=== PATIENT | female | born 1945 | race American Indian/Alaskan Native ===

== ENCOUNTER 2017-03-03 12:12 | Day surgery (SDC) | payer MEDICARE, MEDICAID ==
[2016-08-15 19:40] VITALS: BMI 27.6
--- NOTE | 2017-03-03 12:58 | CP.SDSHP ---
Same Day Surgery H & P - History Proposed Procedure: colonoscopy - Previous Medical/Surgical History Cardiac: Hypertension Endocrine/Metabolic: Diabetes - Allergies Allergies: Allergies No Known Allergies Allergy (Verified 08/15/16 19:47) - Date & Time Date: 03/03/17 Time: 12:58 Short Stay Discharge - Short Stay Discharge Admitting Diagnosis/Reason for Visit: ENCOUNTER FOR SCREENING FOR MALIGNANT NEOPLASM OF Disposition: HOME/ ROUTINE
[2017-03-03] MEDS ORDERED: Propofol 10 mg/ml Inj (20 ML) ONE (14:12)
[2017-03-03 14:45] VITALS: TEMP 96.6
[2017-03-03 15:23] VITALS: O2SAT 100
[2017-03-03 15:56] VITALS: BP 144/60; PULSE 63; RESP 13
== END 2017-03-03 16:51 | disposition home or self-care (01) ==
LOC: C.ENDO 12:12
PROVIDERS: ATTEND Colon & Rectal Surgery
DX: D12.4 Benign neoplasm of descending colon (principal); K57.30 Diverticulosis of large intestine without perforation or abscess without bleeding; K64.8 Other hemorrhoids
CPT/HCPCS: 45388; 82948; 88305; J2704

== ENCOUNTER 2017-09-21 10:02 | Observation (INO) | payer MEDICARE, MEDICAID ==
[2017-09-21 10:03] VITALS: BMI 27.6
[2017-09-21] MEDS: Sodium Chloride 0.9% 1,000 ML IV SCH ×3 (10:30→22:46)
--- NOTE | 2017-09-21 11:10 | C.PDOC ---
History Of Present Illness 72 y/o female,brought by ambulance, from adult day care to the ER for vomiting and syncope. HPI is limited because the patient has dementia.The patient was actively vomiting upon arrival per nurse. Patient denies any nausea, diarrhea, pain, and trauma per EMS/ Adult Daycare. Time Seen by Provider: 09/21/17 11:04 Chief Complaint (Nursing): Syncope History/Exam Limitations: clinical condition (dementia) Onset/Duration Of Symptoms: Hrs Current Symptoms Are (Timing): Still Present Severity: Moderate Additional History Per: EMS, Skilled Nursing Past Medical History Reviewed: Historical Data, Nursing Documentation, Vital Signs Vital Signs: Last Vital Signs Temp 97.3 F L 09/21/17 11:50 Pulse 76 09/21/17 12:31 Resp 12 09/21/17 12:31 BP 99/38 L 09/21/17 12:31 Pulse Ox 100 09/21/17 12:31 - Medical History PMH: Arthritis, CHF, Diabetes, HTN, Hypercholesterolemia Denies: Chronic Kidney Disease Surgical History: Endoscopy Family History: States: No Known Family Hx - Social History Hx Alcohol Use: No Hx Substance Use: No Review Of Systems Except As Marked, All Systems Reviewed And Found Negative. Constitutional: Negative for: Fever, Chills Gastrointestinal: Positive for: Vomiting. Negative for: Nausea, Diarrhea Physical Exam - Physical Exam Appears: Non-toxic Skin: Normal Color, Warm Head: Atraumatic, Normacephalic Cardiovascular: Rhythm Regular Respiratory: Normal Breath Sounds, No Accessory Muscle Use Gastrointestinal/Abdominal: Normal Exam, Soft, No Tenderness Extremity: Normal ROM Neurological/Psych: Other (AOx1) ED Course And Treatment - Laboratory Results Result Diagrams: 09/21/17 11:05 09/21/17 11:05 Interpretation Of Abnormal: LACTATE WNL ECG Rhythm: Sinus Rhythm Interpretation Of ECG: New T wave inversions compared to ECG from 2016. Rate From EC O2 Sat by Pulse Oximetry: 100 (RA) Pulse Ox Interpretation: Normal Progress - Re-Evaluation Re-evaluation Note: 09/21/17 12:27 APPEARS COMFORTABLE NAD. SBP 90S. CT PENDING 09/21/17 13:58 EATING APPEARS COMFORTABLE. D/W DR CORTNEY SOUSA TOBACCO CURER AWARE OF ER FINDINGS WILL ADMIT - Data Reviewed Data Reviewed: Lab, Diagnostic imaging, EKG, Old records - Critical Care Citical Care: Excluding Proc Time Critical Care Time: 90 minutes Medical Decision Making Medical Decision Making: Plan: --CT Head W/O Contrast --ECG --Labs Disposition Counseled Patient/Family Regarding: Studies Performed, Diagnosis - Disposition Disposition: HOSPITALIZED Disposition Time: 13:58 Condition: STABLE Forms: [facility] (Djiboutian) - POA Present On Arrival: None - Clinical Impression Clinical Impression: Syncope, Dementia, Hypotension - Scribe Statement The provider has reviewed the documentation as recorded by the Sita Berger Provider Attestation: All medical record entries made by the Brennanibe were at my direction and personally dictated by me. I have reviewed the chart and agree that the record accurately reflects my personal performance of the history, physical exam, medical decision making, and the department course for this patient. I have also personally directed, reviewed, and agree with the discharge instructions and disposition. Decision To Admit - Pt Status Changed To: Hospital Disposition Of: Observation - . Bed Request Type: Telemetry Admitting Physician: Young Mendoza Patient Diagnosis: Syncope, Dementia, Hypotension
[2017-09-21 11:20] LABS: BASO % 0.3 % (0.0-2.0); EOS # 0.1 K/uL (0.0-0.7); EOS % 1.5 % (0.0-4.0); HEMOGLOBIN 11.3 g/dL (11.0-16.0); LYMPH # 1.4 K/uL (1.0-4.3); LYMPH % 21.7 % (20.0-40.0); MEAN CELL VOLUME 88.5 fL (81.0-99.0); MEAN CORPUSCULAR HEMOGLOBIN 29.2 pg (27.0-31.0); MEAN PLATELET VOLUME 8.4 fL (7.2-11.7); MONO # 0.5 K/uL (0.0-0.8); NEUT # 4.4 K/uL (1.8-7.0); NEUT % 68.5 % (50.0-75.0); RBC 3.85 Mil/uL (3.80-5.20); WHITE BLOOD COUNT 6.4 K/uL (4.8-10.8)
[2017-09-21 11:34] LABS: INR 1.1; PROTHROMBIN TIME 12.2 SECONDS (9.7-12.2)
[2017-09-21 11:54] LABS: ALB/GLOB RATIO 1.1 (1.0-2.1); ALBUMIN 3.6 g/dL (3.5-5.0); CALCIUM 8.7 mg/dl (8.6-10.4); MAGNESIUM 1.6 mg/dL (1.6-2.3)
[2017-09-21 12:02] LABS: SQUAMOUS EPITHIAL < 1 /hpf (0-5); URINE BILIRUBIN NEGATIVE (NEGATIVE); URINE BLOOD NEGATIVE (NEGATIVE); URINE CLARITY Clear (Clear); URINE COLOR Yellow (YELLOW); URINE GLUCOSE (UA) NORMAL (Normal); URINE LEUKOCYTE ESTERASE TRACE Leu/uL (Negative); URINE NITRATE NEGATIVE (NEGATIVE); URINE PROTEIN NEGATIVE (NEGATIVE); URINE UROBILINOGEN NORMAL mg/dL (0.2-1.0)
[2017-09-21 12:04] LABS: TROPONIN I 0.038 ng/mL (0.00-0.120)
--- NOTE | 2017-09-21 12:21 | CT ---
PROCEDURE: CT HEAD WITHOUT CONTRAST. HISTORY: SYNCOPE COMPARISON: None available. TECHNIQUE: Axial computed tomography images were obtained through the head/brain without intravenous contrast. Radiation dose: Total exam DLP = 797.36 mGy-cm. This CT exam was performed using one or more of the following dose reduction techniques: Automated exposure control, adjustment of the mA and/or kV according to patient size, and/or use of iterative reconstruction technique. FINDINGS: HEMORRHAGE: No intracranial hemorrhage. BRAIN: Diffuse atrophy with prominence of the ventricles and sulci noted. No mass effect or edema. Dense intracranial atherosclerosis. Bilateral basal ganglia calcifications. Moderate scattered periventricular and subcortical white matter hypodensities, which are nonspecific, but often seen with chronic microvascular ischemic disease. VENTRICLES: No hydrocephalus. CALVARIUM: Unremarkable. PARANASAL SINUSES: Unremarkable as visualized. No significant inflammatory changes. MASTOID AIR CELLS: Unremarkable as visualized. No inflammatory changes. OTHER FINDINGS: None. IMPRESSION: Moderate nonspecific white matter changes.
[2017-09-21] MEDS ORDERED: Sodium Chloride 0.9% 1,000 ML ONE (15:46)
--- NOTE | 2017-09-21 16:23 | RAD ---
HISTORY: Sepsis Patient COMPARISON: No prior. FINDINGS: LUNGS: Shallow lung volumes. No dense consolidation diffuse interstitial lung marking mild prominence-chronicity unknown PLEURA: No significant pleural effusion identified, ; small left pleural effusion excluded no pneumothorax apparent. CARDIOVASCULAR: Minimal cardiomegaly. 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 OTHER FINDINGS: Right superior mediastinal mild increased soft tissue density/ prominence without tracheal deviation -chronicity unknown - prominent brachiocephalic vessels -1 consideration IMPRESSION: No consolidation. Nonspecific borderline prominent interstitial and bronchovascular markings -chronicity unknown Small minimal left small pleural effusion possible. 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
[2017-09-21 22:13] VITALS: RESP 20
--- NOTE | 2017-09-21 23:31 | CP.PCM.HP ---
History of Present Illness - History of Present Illness History of Present Illness: CC: syncope HPI: 72 y/o female history of HTN,Hyperlipidemia, CHF, Heart failure and dementia ,brought by ambulance, from adult day care to the ER for vomiting and syncope. HPI is limited because the patient has dementia.The patient was actively vomiting upon arrival per nurse. Patient denies any nausea, diarrhea, pain, and trauma per EMS/ Adult Daycare. Accirding to recirds pt has h/o DM, CHF , arthritis, no involuntray movement, no cough, sore throat, Present on Admission - Present on Admission Any Indicators Present on Admission: Yes Review of Systems - Review of Systems Systems not reviewed;Unavailable: Acuity of Condition, Altered Mental Status - Constitutional Constitutional: Fatigue, Lethargy - Cardiovascular Cardiovascular: absent: As Per HPI, Acrocyanosis, Chest Pain, Chest Pain at Rest , Chest Pain with Activity, Claudication, Diaphoresis, Dyspnea, Dyspnea on Exertion, Edema, Irregular Heart Rhythm, Pain Radiating to Arm/Neck/Jaw, Leg Edema, Leg Ulcers, Lightheadedness, Orthopnea, Palpitations, Paroxysmal Nocturnal Dyspnea, Pedal Edema, Radiating Pain, Rapid Heart Rate, Slow Heart Rate, Syncope, Other - Respiratory Respiratory: absent: As Per HPI, Cough, Dyspnea, Hemoptysis, Dyspnea on Exertion , Wheezing, Snoring, Stridor, Pain on Inspiration, Chest Congestion, Excessive Mucous Production, Change in Mucous Color, Pain with Coughing, Other - Gastrointestinal Gastrointestinal: Nausea, Vomiting - Genitourinary Genitourinary: absent: As Per HPI, Change in Urinary Stream, Difficulty Urinating, Dysuria, Flank Pain, Hematuria, Pyuria, Nocturia, Urinary Incontinence, Urinary Frequency, Urinary Hesitance, Urinary Urgency, Voiding Freq/Small Amts, Freq UTI, Hx Renal/Bladder Calculi, Hx /Renal Surgery, Bladder Distension, Other - Musculoskeletal Musculoskeletal: Abnormal Gait, Arthralgias - Integumentary Integumentary: Dry Skin - Neurological Neurological: Abnormal Gait, Dizziness, Syncope. absent: As Per HPI, Abnormal Hearing, Abnormal Movements, Abnormal Speech, Behavioral Changes, Burning Sensations, Confusion, Convulsions, Disequilibrium, Numbness, Focal Weakness, Frequent Falls, Headaches, Lack of Coordination, Loss of Vision, Memory Loss, Paresthesias, Radicular Pain, Restless Legs, Sensory Deficit, Tingling, Tremor, Vertigo, Weakness, Other Visual Disturbances, Other Past Patient History - Past Medical History & Family History Past Medical History?: Yes - Past Social History Smoking Status: Never Smoked - CARDIAC Hx Cardiac Disorders: Yes Hx Congestive Heart Failure: Yes Hx Hypercholesterolemia: Yes Hx Hypertension: Yes - PULMONARY Hx Respiratory Disorders: No - NEUROLOGICAL Hx Neurological Disorder: Yes Hx Dementia: Yes - HEENT Hx HEENT Problems: Yes Hx Cataracts: Yes Other/Comment: WEARS GLASSES - RENAL Hx Chronic Kidney Disease: No - ENDOCRINE/METABOLIC Hx Endocrine Disorders: Yes Hx Diabetes Mellitus Type 2: Yes (NOT ON MEDS) - HEMATOLOGICAL/ONCOLOGICAL Hx Blood Disorders: No - INTEGUMENTARY Hx Dermatological Problems: No - MUSCULOSKELETAL/RHEUMATOLOGICAL Hx Falls: Yes - GASTROINTESTINAL Hx Gastrointestinal Disorders: Yes Other/Comment: BLOATING - GENITOURINARY/GYNECOLOGICAL Hx Genitourinary Disorders: No - PSYCHIATRIC Hx Psychophysiologic Disorder: No Hx Substance Use: No - SURGICAL HISTORY Hx Surgeries: Yes Hx Cardiac Catheterization: Yes - ANESTHESIA Hx Anesthesia: Yes Hx Anesthesia Reactions: No Meds Allergies/Adverse Reactions: Allergies Allergy/AdvReac Type Severity Reaction Status Date / Time Penicillins Allergy Verified 09/21/17 10:34 Physical Exam - Constitutional Appears: No Acute Distress - Head Exam Head Exam: ATRAUMATIC, NORMAL INSPECTION, NORMOCEPHALIC - Eye Exam Eye Exam: EOMI, Normal appearance, PERRL Pupil Exam: NORMAL ACCOMODATION, PERRL - Cardiovascular Exam Cardiovascular Exam: Tachycardia, +S1, +S2 - GI/Abdominal Exam GI & Abdominal Exam: Normal Bowel Sounds, Soft. absent: Tenderness - Neurological Exam Neurological exam: Abnormal Gait, Alert, Altered, CN II-XII Intact - Psychiatric Exam Psychiatric exam: Normal Affect, Normal Mood Results - Vital Signs Recent Vital Signs: Last Vital Signs Temp 98 F 09/21/17 22:12 Pulse 74 09/21/17 22:12 Resp 20 09/21/17 22:12 BP 143/78 09/21/17 22:44 Pulse Ox 98 09/21/17 22:12 - Labs Result Diagrams: 09/21/17 11:05 09/21/17 11:05 Labs: Laboratory Results - last 24 hr 09/21/17 09/21/17 09/21/17 10:41 11:05 11:05 WBC 6.4 RBC 3.85 Hgb 11.3 Hct 34.1 MCV 88.5 MCH 29.2 MCHC 33.0 RDW 15.0 H Plt Count 191 MPV 8.4 Neut % (Auto) 68.5 Lymph % (Auto) 21.7 [place] % (Auto) 8.0 Eos % (Auto) 1.5 Baso % (Auto) 0.3 Neut # 4.4 Lymph # 1.4 [place] # 0.5 Eos # 0.1 Baso # 0.0 PT INR APTT Sodium 127 L Potassium 3.7 Chloride 100 Carbon Dioxide 15 L Anion Gap 15 BUN 36 H Creatinine 1.7 H Est GFR ( Amer) 36 Est GFR (Non-Af Amer) 29 POC Glucose (mg/dL) 118 H Random Glucose 105 Calcium 8.7 Phosphorus 4.5 Magnesium 1.6 Total Bilirubin 0.2 AST 26 ALT 24 Alkaline Phosphatase 68 Troponin I 0.0380 Total Protein 6.8 Albumin 3.6 Globulin 3.2 Albumin/Globulin Ratio 1.1 Urine Color Urine Clarity Urine pH Ur Specific [place] Urine Protein Urine Glucose (UA) Urine Ketones Urine Blood Urine Nitrate Urine Bilirubin Urine Urobilinogen Ur Leukocyte Esterase Urine WBC (Auto) Urine RBC (Auto) Ur Squamous Epith Cells Hyaline Casts 09/21/17 09/21/17 09/21/17 11:20 11:51 17:08 WBC RBC Hgb Hct MCV MCH MCHC RDW Plt Count MPV Neut % (Auto) Lymph % (Auto) [place] % (Auto) Eos % (Auto) Baso % (Auto) Neut # Lymph # [place] # Eos # Baso # PT 12.2 INR 1.1 APTT 26 Sodium Potassium Chloride Carbon Dioxide Anion Gap BUN Creatinine Est GFR ( Amer) Est GFR (Non-Af Amer) POC Glucose (mg/dL) 121 H Random Glucose Calcium Phosphorus Magnesium Total Bilirubin AST ALT Alkaline Phosphatase Troponin I Total Protein Albumin Globulin Albumin/Globulin Ratio Urine Color Yellow Urine Clarity Clear Urine pH 5.0 Ur Specific [place] 1.010 Urine Protein Negative Urine Glucose (UA) Normal Urine Ketones Negative Urine Blood Negative Urine Nitrate Negative Urine Bilirubin Negative Urine Urobilinogen Normal Ur Leukocyte Esterase Trace Urine WBC (Auto) 4 Urine RBC (Auto) < 1 Ur Squamous Epith Cells < 1 Hyaline Casts 6-10 H Assessment & Plan (1) Dehydration Status: Acute (2) Hypotension Status: Acute (3) Syncope Assessment and Plan: rule out vasovagal/ diuretics/ ischemia of brain/ dehydation Status: Acute (4) Dementia Status: Chronic (5) HTN (hypertension) Status: Chronic
[2017-09-22] MEDS: Sodium Chloride 0.9% 1,000 ML IV SCH ×3 (02:00→12:00)
[2017-09-22] MEDS: Pantoprazole 40 mg EC Tab PO SCH (09:35)
[2017-09-22] MEDS: Enoxaparin 40 mg Syringe SC SCH ×2 (09:36→10:11)
--- NOTE | 2017-09-22 23:30 | CP.PCM.PN ---
Subjective - Date & Time of Evaluation Date of Evaluation: 09/22/17 Time of Evaluation: 18:30 - Subjective Subjective: Pt seen and evaluated, pt is no more dizzy and B.P is stable, she feels better, no shortness of breath Objective - Vital Signs/Intake and Output Vital Signs (last 24 hours): Temp Pulse Resp BP Pulse Ox 97.3 F L 71 20 160/70 H 100 09/22/17 15:19 09/22/17 18:00 09/22/17 15:19 09/22/17 21:28 09/22/17 15:19 - Medications Medications: Current Medications Carvedilol (Coreg) 12.5 mg PO Q12 [facility] Last Admin: 09/22/17 21:28 Dose: 12.5 mg Enoxaparin Sodium (Lovenox) 40 mg SC DAILY [facility] Last Admin: 09/22/17 10:11 Dose: Not Given Ergocalciferol (Drisdol 50,000 Intl Units Cap) 1 cap PO QWK [facility] Memantine (Namenda) 10 mg PO DAILY [facility] Last Admin: 09/22/17 09:35 Dose: 10 mg Pantoprazole Sodium (Protonix Ec Tab) 40 mg PO DAILY [facility] Last Admin: 09/22/17 09:35 Dose: 40 mg Rosuvastatin Calcium (Crestor) 10 mg PO HS [facility] Last Admin: 09/22/17 21:27 Dose: 10 mg - Labs Labs: 09/21/17 11:05 09/21/17 11:05 PT 12.2 SECONDS (9.7-12.2) 09/21/17 11:20 INR 1.1 09/21/17 11:20 APTT 26 SECONDS (21-34) 09/21/17 11:20 - Constitutional Appears: No Acute Distress - Head Exam Head Exam: ATRAUMATIC, NORMAL INSPECTION, NORMOCEPHALIC - Eye Exam Eye Exam: EOMI, Normal appearance, PERRL Pupil Exam: NORMAL ACCOMODATION, PERRL - Respiratory Exam Respiratory Exam: Clear to Ausculation Bilateral, NORMAL BREATHING PATTERN - Cardiovascular Exam Cardiovascular Exam: REGULAR RHYTHM, +S1, +S2. absent: Murmur - GI/Abdominal Exam GI & Abdominal Exam: Soft, Normal Bowel Sounds. absent: Tenderness Assessment and Plan (1) Dehydration Status: Acute (2) Hypotension Status: Acute (3) Syncope Assessment & Plan: if pt has no overnight complains and remains stable discharge home tommorw Status: Resolved (4) Dementia Status: Chronic (5) HTN (hypertension) Status: Chronic
[2017-09-23 05:14] VITALS: O2SAT 96
[2017-09-23] MEDS: Pantoprazole 40 mg EC Tab PO SCH (10:17)
[2017-09-23] MEDS: Enoxaparin 40 mg Syringe SC SCH ×2 (10:18→10:19)
--- NOTE | 2017-09-23 12:10 | PCM.HF ---
Heart Failure Core Measure - Heart Failure Ejection Fraction: 40 % or Greater JACKELYN Inhibitor Prescribed: No Contraindication/Reason for not providing: WAS ON ARB; ARB D/C'D 2/2 HYPOTENSION Beta-Killian Prescribed: Carvedilol Angiotensin II Receptor Killian Prescribed: No Contraindication/Reason for not providing: WAS ON ARB; ARB D/C'D 2/2 HYPOTENSION AnticoagulationTherapy for Atrial Fibrillation/Atrialflutter: No Contraindication/Reason for not providing: NO AFIB Aldosterone Antagonist Prescribed: No Contraindication/Reason for not providing: EF > 40; HYPOTENSION Hydralazine Nitrate Prescribed: No Contraindication/Reason for not providing: EF > 40; HYPOTENSION Implantable Cardioverter Defibrillator Therapy: No Contraindication/Reason for not providing: EF > 40 Cardiac Resynchronization Therapy Prescribed: No Contraindication/Reason for not providing: EF > 40 - Follow up Will be discharged to: Home Follow Up Date (must be within 7 days from discharge): 09/27/17 Follow Up Time: 09:00
--- NOTE | 2017-09-23 12:42 | CP.PCM.PN ---
Subjective - Date & Time of Evaluation Date of Evaluation: 09/23/17 Time of Evaluation: 12:40 - Subjective Subjective: PT CLEARED BY DR. BARR FOR D/C HOME TODAY. PT REFUSED AM LABS. PT TO EVAL PT FOR PHY THER AT HER [facility]ULT [facility] C[facility] 3X/WEEK. NEW RX FOR CARVEDILOL 12.5 MG PO Q12 GIVEN; PT TO STOP HER 25 MG PO Q12 DOSE AT HOME. SHE IS ALSO TO HOLD ALDACTONE AND COZAAR UNTIL SEEN BY HER PMD, DR. Sonia GARCIA. DISCUSSED THIS WITH PT AND HER DAUGHTER, REYNA, ALL D/C INSTRUCTIONS AND MED CHANGES. DAUGHTER WILL QUALITY ASSURANCE ADVISOR PT TODAY. NO FURTHER ORDERS. Objective - Vital Signs/Intake and Output Vital Signs (last 24 hours): Temp Pulse Resp BP Pulse Ox 98.1 F 70 20 146/73 96 09/23/17 05:12 09/23/17 05:12 09/23/17 05:12 09/23/17 10:17 09/23/17 05:12 Intake and Output: 09/23/17 09/23/17 06:59 18:59 Output Total 500 Balance -500 - Medications Medications: Current Medications Carvedilol (Coreg) 12.5 mg PO Q12 [facility] Last Admin: 09/23/17 10:17 Dose: 12.5 mg Enoxaparin Sodium (Lovenox) 40 mg SC DAILY [facility] Last Admin: 09/23/17 10:19 Dose: Not Given Ergocalciferol (Drisdol 50,000 Intl Units Cap) 1 cap PO QWK [facility] Memantine (Namenda) 10 mg PO DAILY [facility] Last Admin: 09/23/17 10:17 Dose: 10 mg Pantoprazole Sodium (Protonix Ec Tab) 40 mg PO DAILY [facility] Last Admin: 09/23/17 10:17 Dose: 40 mg Rosuvastatin Calcium (Crestor) 10 mg PO HS [facility] Last Admin: 09/22/17 21:27 Dose: 10 mg - Labs Labs: 09/21/17 11:05 09/21/17 11:05 PT 12.2 SECONDS (9.7-12.2) 09/21/17 11:20 INR 1.1 09/21/17 11:20 APTT 26 SECONDS (21-34) 09/21/17 11:20
[2017-09-23 15:21] VITALS: BP 165/78; PULSE 75; TEMP 98.3
--- NOTE | 2017-09-23 23:27 | CP.PCM.DIS ---
Provider - Provider Date of Admission: 09/21/17 13:59 Attending physician: Young Mendoza MD Diagnosis - Discharge Diagnosis (1) Dehydration Status: Acute (2) Hypotension Status: Acute (3) Syncope Status: Resolved (4) Dementia Status: Chronic (5) HTN (hypertension) Status: Chronic Hospital Course - Lab Results Lab Results: Micro Results 09/21/17 11:25 Blood Blood Culture - Preliminary NO GROWTH AFTER 48 HOURS 09/21/17 11:45 Blood Blood Culture - Preliminary NO GROWTH AFTER 48 HOURS 09/21/17 11:13 Urine,Catheterized Urine Culture - Final No Growth (<1,000 CFU/ML) Most Recent Lab Values WBC 6.4 K/uL (4.8-10.8) 09/21/17 11:05 RBC 3.85 Mil/uL (3.80-5.20) 09/21/17 11:05 Hgb 11.3 g/dL (11.0-16.0) 09/21/17 11:05 Hct 34.1 % (34.0-47.0) 09/21/17 11:05 MCV 88.5 fL (81.0-99.0) 09/21/17 11:05 MCH 29.2 pg (27.0-31.0) 09/21/17 11:05 MCHC 33.0 g/dL (33.0-37.0) 09/21/17 11:05 RDW 15.0 % (11.5-14.5) H 09/21/17 11:05 Plt Count 191 K/uL (130-400) 09/21/17 11:05 MPV 8.4 fL (7.2-11.7) 09/21/17 11:05 Neut % (Auto) 68.5 % (50.0-75.0) 09/21/17 11:05 Lymph % (Auto) 21.7 % (20.0-40.0) 09/21/17 11:05 [place] % (Auto) 8.0 % (0.0-10.0) 09/21/17 11:05 Eos % (Auto) 1.5 % (0.0-4.0) 09/21/17 11:05 Baso % (Auto) 0.3 % (0.0-2.0) 09/21/17 11:05 Neut # 4.4 K/uL (1.8-7.0) 09/21/17 11:05 Lymph # 1.4 K/uL (1.0-4.3) 09/21/17 11:05 [place] # 0.5 K/uL (0.0-0.8) 09/21/17 11:05 Eos # 0.1 K/uL (0.0-0.7) 09/21/17 11:05 Baso # 0.0 K/uL (0.0-0.2) 09/21/17 11:05 PT 12.2 SECONDS (9.7-12.2) 09/21/17 11:20 INR 1.1 09/21/17 11:20 APTT 26 SECONDS (21-34) 09/21/17 11:20 Sodium 127 mmol/L (132-148) L 09/21/17 11:05 Potassium 3.7 mmol/L (3.6-5.2) 09/21/17 11:05 Chloride 100 mmol/L (98-107) 09/21/17 11:05 Carbon Dioxide 15 mmol/L (22-30) L 09/21/17 11:05 Anion Gap 15 (10-20) 09/21/17 11:05 BUN 36 mg/dL (7-17) H 09/21/17 11:05 Creatinine 1.7 mg/dL (0.7-1.2) H 09/21/17 11:05 Est GFR ( Amer) 36 09/21/17 11:05 Est GFR (Non-Af Amer) 29 09/21/17 11:05 POC Glucose (mg/dL) 91 mg/dL (65-110) 09/23/17 16:20 Random Glucose 105 mg/dL (65-105) 09/21/17 11:05 Calcium 8.7 mg/dl (8.6-10.4) 09/21/17 11:05 Phosphorus 4.5 mg/dL (2.5-4.5) 09/21/17 11:05 Magnesium 1.6 mg/dL (1.6-2.3) 09/21/17 11:05 Total Bilirubin 0.2 mg/dL (0.2-1.3) 09/21/17 11:05 AST 26 U/L (14-36) 09/21/17 11:05 ALT 24 U/L (9-52) 09/21/17 11:05 Alkaline Phosphatase 68 U/L (38-126) 09/21/17 11:05 Troponin I 0.0380 ng/mL (0.00-0.120) 09/21/17 11:05 Total Protein 6.8 g/dL (6.3-8.3) 09/21/17 11:05 Albumin 3.6 g/dL (3.5-5.0) 09/21/17 11:05 Globulin 3.2 gm/dL (2.2-3.9) 09/21/17 11:05 Albumin/Globulin Ratio 1.1 (1.0-2.1) 09/21/17 11:05 Urine Color Yellow (YELLOW) 09/21/17 11:51 Urine Clarity Clear (Clear) 09/21/17 11:51 Urine pH 5.0 (5.0-8.0) 09/21/17 11:51 Ur Specific [place] 1.010 (1.003-1.030) 09/21/17 11:51 Urine Protein Negative mg/dL (NEGATIVE) 09/21/17 11:51 Urine Glucose (UA) Normal mg/dL (Normal) 09/21/17 11:51 Urine Ketones Negative mg/dL (NEGATIVE) 09/21/17 11:51 Urine Blood Negative (NEGATIVE) 09/21/17 11:51 Urine Nitrate Negative (NEGATIVE) 09/21/17 11:51 Urine Bilirubin Negative (NEGATIVE) 09/21/17 11:51 Urine Urobilinogen Normal mg/dL (0.2-1.0) 09/21/17 11:51 Ur Leukocyte Esterase Trace [place]/uL (Negative) 09/21/17 11:51 Urine WBC (Auto) 4 /hpf (0-5) 09/21/17 11:51 Urine RBC (Auto) < 1 /hpf (0-3) 09/21/17 11:51 Ur Squamous Epith Cells < 1 /hpf (0-5) 09/21/17 11:51 Hyaline Casts 6-10 /lpf (0-2) H 09/21/17 11:51 - Hospital Course Hospital Course: PT CLEARED FOR D/C HOME TODAY. PT REFUSED AM LABS. PT TO EVAL PT FOR PHY THER AT HER [facility] 3X/WEEK. NEW RX FOR CARVEDILOL 12.5 MG PO Q12 GIVEN; PT TO STOP HER 25 MG PO Q12 DOSE AT HOME. SHE IS ALSO TO HOLD ALDACTONE AND COZAAR UNTIL SEEN BY HER PMD, DR. Sonia MCINTOSH. DISCUSSED THIS WITH PT AND HER DAUGHTER, REYNA, ALL D/C INSTRUCTIONS AND MED CHANGES. DAUGHTER WILL COURT BAILIFF OR SHERIFF PT TODAY. NO FURTHER ORDERS. Discharge Exam - Head Exam Head Exam: ATRAUMATIC, NORMAL INSPECTION, NORMOCEPHALIC Discharge Plan - Discharge Medications Prescriptions: Carvedilol [Coreg] 12.5 mg PO Q12 #60 tab - Follow Up Plan Condition: STABLE Disposition: HOME/ ROUTINE Instructions: Dehydration (DC), Syncope (DC), Dementia (GEN), Hypotension (DC) Additional Instructions: FOLLOW UP WITH DR. MCINTOSH IN THE OFFICE WITHIN 5-7 DAYS OF DISCHARGE---CALL THE OFFICE ON MONDAY TO MAKE AN APPT. YOUR BLOOD PRESSURE MEDICATIONS HAVE BEEN CHANGED ACCORDING TO DR. MENDOZA. UNTIL YOU SEE YOUR DOCTOR, DR. MCINTOSH, STOP TAKING YOUR LOSARTAN (COZAAR) AND SPIRONOLACTONE (ALDACTONE). YOUR CARVEDILOL DOSE HAS BEEN CHANGED--STOP TAKING YOUR DOSE OF 25 MG. NEW PRESCRIPTION FOR CARVEDILOL 12.5 MG (1 TABLET) BY MOUTH EVERY 12 HOURS ( MORNING AND NIGHT). HAS BEEN SENT TO YOUR PHARMACY, COURT BAILIFF OR SHERIFF TODAY. YOU WILL HAVE PHYSICAL THERAPY AT YOUR DAY CARE CENTER. FOR FURTHER QUESTIONS OR CONCERNS, CONTACT DR. MENDOZA OR DR. MCINTOSH'S OFFICE. Referrals: Shirley Mcintosh MD [Medical Doctor] - Young Mendoza MD [Staff Provider] -
--- NOTE | 2017-09-25 06:39 | CARD ---
APPROVED REPORT EKG Measurement Heart [id number] <Conclusion> Sinus bradycardia with sinus arrhythmia Left ventricular hypertrophy with repolarization abnormality Inferior infarct, age undetermined Anterior infarct, age undetermined Abnormal ECG
[2017-09-28] MEDS ORDERED: Ergocalciferol 50,000 Intl Units Cap PO SCH (10:00)
== END 2017-09-23 19:36 | disposition home or self-care (01) ==
LOC: C.ER 10:02 → C.9E 13:59 → C.6T 20:25
PROVIDERS: ADMIT Internal Medicine; ATTEND Internal Medicine
DX: R55 Syncope and collapse (principal); F03.90 Unspecified dementia, unspecified severity, without behavioral disturbance, psychotic disturbance, mood disturbance, and anxiety; I95.9 Hypotension, unspecified; E86.0 Dehydration; E78.5 Hyperlipidemia, unspecified
CPT/HCPCS: 70450; 71045; 80053; 81001; 82803; 82948; 83735; 84100; 84484; 85025; 85610; 85730; 87040; 87086; 93005; 96360; 96361; 97116; 97162; 99285; G0378; G8978; G8979; J7040